=== PATIENT | female | born 1980 | race Caucasian/White ===

== ENCOUNTER → 2024-10-02 | Outpatient (CLI) | payer BC, SELFPAY ==
--- NOTE | 2024-10-02 09:33 | XR_ITS ---
Examination: Wrist, left 3 views Technique: Wrist AP, oblique, lateral 3 views Date and time of exam: October 02, 2024 0953 hours INDICATIONS: Left wrist numbness 3 years FINDINGS: Mild osteopenia. No fracture or dislocation. Mild osteoarthritis first carpometacarpal joint No erosive arthritis IMPRESSION: Mild osteoarthritis first carpometacarpal joint
--- NOTE | 2024-10-02 09:33 | XR_ITS ---
Examination: Left elbow 3 views Technique: Elbow AP, oblique, lateral 3 views Exam date and time: October 02, 2024 0942 hours INDICATIONS: Left elbow pain 4 months. FINDINGS: Minor elbow osteoarthritis No fracture or dislocation. No elbow effusion IMPRESSION: Minor elbow osteoarthritis.
--- NOTE | 2024-10-02 09:33 | XR_ITS ---
Examination: Hand, left 3 views Technique: Hand AP, oblique, lateral 3 views Date and time of exam: October 02, 2024 0942 hours INDICATIONS: Numbness in the left hand 3 years. FINDINGS: Mild juxta-articular bone demineralization. No fracture or dislocation. Mild osteoarthritis first carpometacarpal joint No erosive arthritis IMPRESSION: Mild osteoarthritis first carpometacarpal joint
== END | disposition home or self-care (01) ==
LOC: CDIM 09:20
PROVIDERS: PCP Family Medicine
DX: M19.022 Primary osteoarthritis, left elbow (principal); M18.12 Unilateral primary osteoarthritis of first carpometacarpal joint, left hand; M25.532 Pain in left wrist
CPT/HCPCS: 73080; 73110; 73130